=== PATIENT | female | born 2000 | race Caucasian/White ===

== ENCOUNTER 2023-10-10 10:35 | Emergency (ER) | payer OTHER, SELFPAY ==
[2023-10-10 10:36] VITALS: BP 126/73; PULSE 74; RESP 16; TEMP 36.3; O2SAT 99; BMI 19.3
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
[2023-10-10 11:11] VITALS: BP 118/67; PULSE 71; RESP 15; TEMP 36.6; O2SAT 100
== END 2023-10-10 11:16 | disposition home or self-care (01) ==
LOC: ED 11:14
PROVIDERS: Emergency Provider Emergency Medicine; Visit Provider Emergency Medicine
DX: S70.11XA Contusion of right thigh, initial encounter (principal); V49.40XA Driver injured in collision with unspecified motor vehicles in traffic accident, initial encounter
CPT/HCPCS: 99282